=== PATIENT | male | born 1995 | race American Indian/Alaskan Native ===

== ENCOUNTER 2019-03-02 15:22 | Emergency (ER) | payer MEDICAID, OTHER ==
[2019-03-02 15:47] VITALS: BP 110/69
[2019-03-02] MEDS ORDERED: ZITHROMAX PO ONE (17:54)
[2019-03-02] MEDS ORDERED: ROCEPHIN IM ONE (17:54)
[2019-03-02] MEDS ORDERED: XYLOCAINE 1% MPF 5 mL INFILTRATI ONE (17:54)
[2019-03-02] MEDS ORDERED: ZOFRAN ODT PO ONE (17:54)
--- NOTE | 2019-03-02 17:59 | Emergency Department Report ---
ED Male HPI - General Chief complaint: Skin Rash Stated complaint: ITCHING IN GENITALS Time Seen by Provider: 03/02/19 17:41 Source: patient Mode of arrival: Ambulatory Limitations: No Limitations - History of Present Illness Initial comments: Mr. Arriaga is a 23 yo male who presents with anal itching and lesions for the past several weeks. He was exposed to chlamydia by a known sexual partner. He has had unprotected anal receptive intercourse. He denies abdominal pain. Denies genital discharge. Denies fever. MD Complaint: other (anal lesions anal itching) -: Gradual, week(s) (3) Radiation: none Severity: mild Quality: aching Consistency: constant Improves with: none Worsens with: none denies other symptoms - Related Data Previous Rx's Medication Instructions Recorded Last Taken Type Acyclovir [Zovirax Tab] 400 mg PO TID 7 Days #21 tab 03/02/19 Unknown Rx Allergies Allergy/AdvReac Type Severity Reaction Status Date / Time No Known Allergies Allergy Verified 03/02/19 15:23 ED Review of Systems ROS: Stated complaint: ITCHING IN GENITALS Other details as noted in HPI Constitutional: denies: fever, malaise Gastrointestinal: denies: abdominal pain, vomiting Genitourinary: denies: urgency, dysuria, frequency, discharge Skin: rash, lesions Neurological: denies: headache, weakness ED Past Medical Hx - Past Medical History Previous Medical History?: No - Surgical History Past Surgical History?: No - Social History Smoking Status: Current Every Day Smoker Substance Use Type: None - Medications Home Medications: Home Medications Medication Instructions Recorded Confirmed Last Taken Type Acyclovir [Zovirax Tab] 400 mg PO TID 7 Days #21 tab 03/02/19 Unknown Rx ED Physical Exam - General Limitations: No Limitations General appearance: alert, in no apparent distress - Head Head exam: Present: atraumatic, normocephalic - Eye Eye exam: Present: normal appearance - ENT ENT exam: Present: mucous membranes moist - Neck Neck exam: Present: normal inspection, full ROM - Respiratory Respiratory exam: Absent: respiratory distress - GI/Abdominal GI/Abdominal exam: Present: soft - Rectal Rectal exam: Present: other (several small flesh-colored ulcers at the rectal region with small nonthrombosed hemorrhoid) - Extremities Exam Extremities exam: Present: normal inspection - Back Exam Back exam: Present: normal inspection - Neurological Exam Neurological exam: Present: alert, oriented X3 - Psychiatric Psychiatric exam: Present: normal affect, normal mood - Skin Skin exam: Present: warm. Absent: rash ED Course Vital Signs 03/02/19 15:40 Temperature 98.1 F Pulse Rate 72 Respiratory 16 Rate Blood Pressure 110/69 O2 Sat by Pulse 98 Oximetry ED Medical Decision Making - Medical Decision Making Mr. Arriaga presents with STI exposure and proctitis. Differential diagnosis includes herpes simplex, chlamydia, gonorrhea infection. I suspect herpes proctitis due to clinical presentation. He received ceftriaxone and azithromycin to cover for both chlamydia and gonorrhea. I have provided prescription for acyclovir. Also provided written and verbal education. Strongly recommended HIV and STI outpatient testing. Critical care attestation.: If time is entered above; I have spent that time in minutes in the direct care of this critically ill patient, excluding procedure time. 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
== END 2019-03-02 18:20 | disposition home or self-care (01) ==
LOC: ED 15:22
DX: A60.1 Herpesviral infection of perianal skin and rectum (principal); Z20.2 Contact with and (suspected) exposure to infections with a predominantly sexual mode of transmission; F17.200 Nicotine dependence, unspecified, uncomplicated
CPT/HCPCS: 96372; 99282; J0696; Q0162

== ENCOUNTER 2019-07-31 03:48 | Emergency (ER) | payer SELFPAY ==
[2019-07-31 03:54] VITALS: BP 115/69
[2019-07-31] MEDS ORDERED: AMOXICILLIN 500 MG CAP PO ONE (04:50)
[2019-07-31] MEDS ORDERED: IBUPROFEN 800 MG TAB PO ONE (04:50)
--- NOTE | 2019-07-31 05:09 | Emergency Department Report ---
ED ENT HPI - General Chief complaint: Sore Throat Stated complaint: SORE THROAT Time Seen by Provider: 07/31/19 04:49 Source: patient Mode of arrival: Ambulatory Limitations: No Limitations - History of Present Illness Initial comments: pt is a 23-year-old -Citizen Of The [place] male who presents for sore throat 3 days date other family member with strep throat. Pain is rated at 4/10 exacerbated by swallowing. There is no stridor , no wheezing, no ear pain. There is no fever at this time patient is tolerated by mouth intake. MD complaint: sore throat Onset/Timin -: week(s) Severity: moderate Severity scale (0 -10): 4 Quality: burning, sharp Consistency: intermittent Improves with: none Worsens with: swallowing Associated Symptoms: pain with swallowing, sore throat - Related Data Previous Rx's Medication Instructions Recorded Last Taken Type Acyclovir [Zovirax Tab] 400 mg PO TID 7 Days #21 tab 03/02/19 Unknown Rx Amoxicillin [Trimox CAP] 500 mg PO Q8H 10 Days #30 capsule 07/31/19 Unknown Rx Benzocaine/Menthol [Cepacol Sore 1 each MM Q4H PRN #24 lozenge 07/31/19 Unknown Rx Throat Lozenge] Ibuprofen [Motrin 800 MG tab] 800 mg PO Q8HR PRN #30 tablet 07/31/19 Unknown Rx predniSONE [Deltasone] 40 mg PO QDAY 5 Days #10 tab 07/31/19 Unknown Rx Allergies Allergy/AdvReac Type Severity Reaction Status Date / Time No Known Allergies Allergy Verified 03/02/19 15:23 ED Dental HPI - General Chief complaint: Sore Throat Stated complaint: SORE THROAT Time Seen by Provider: 07/31/19 04:49 Source: patient Mode of arrival: Ambulatory Limitations: No Limitations - Related Data Previous Rx's Medication Instructions Recorded Last Taken Type Acyclovir [Zovirax Tab] 400 mg PO TID 7 Days #21 tab 03/02/19 Unknown Rx Amoxicillin [Trimox CAP] 500 mg PO Q8H 10 Days #30 capsule 07/31/19 Unknown Rx Benzocaine/Menthol [Cepacol Sore 1 each MM Q4H PRN #24 lozenge 07/31/19 Unknown Rx Throat Lozenge] Ibuprofen [Motrin 800 MG tab] 800 mg PO Q8HR PRN #30 tablet 07/31/19 Unknown Rx predniSONE [Deltasone] 40 mg PO QDAY 5 Days #10 tab 07/31/19 Unknown Rx Allergies Allergy/AdvReac Type Severity Reaction Status Date / Time No Known Allergies Allergy Verified 03/02/19 15:23 ED Review of Systems ROS: Stated complaint: SORE THROAT Other details as noted in HPI Constitutional: denies: chills, fever Eyes: denies: eye pain, eye discharge, vision change ENT: throat pain Respiratory: denies: cough, shortness of breath, wheezing Cardiovascular: denies: chest pain, palpitations Endocrine: no symptoms reported Gastrointestinal: as per HPI. denies: nausea, vomiting Genitourinary: denies: urgency, dysuria Musculoskeletal: denies: back pain, joint swelling, arthralgia Skin: denies: rash, lesions Neurological: denies: headache, weakness, paresthesias Psychiatric: denies: anxiety, depression Hematological/Lymphatic: denies: easy bleeding, easy bruising ED Past Medical Hx - Past Medical History Previous Medical History?: No - Surgical History Past Surgical History?: No - Social History Smoking Status: Current Every Day Smoker Substance Use Type: Marijuana - Medications Home Medications: Home Medications Medication Instructions Recorded Confirmed Last Taken Type Acyclovir [Zovirax Tab] 400 mg PO TID 7 Days #21 tab 03/02/19 Unknown Rx Amoxicillin [Trimox CAP] 500 mg PO Q8H 10 Days #30 capsule 07/31/19 Unknown Rx Benzocaine/Menthol [Cepacol Sore 1 each MM Q4H PRN #24 lozenge 07/31/19 Unknown Rx Throat Lozenge] Ibuprofen [Motrin 800 MG tab] 800 mg PO Q8HR PRN #30 tablet 07/31/19 Unknown Rx predniSONE [Deltasone] 40 mg PO QDAY 5 Days #10 tab 07/31/19 Unknown Rx ED Physical Exam - General Limitations: No Limitations General appearance: alert, in no apparent distress - Head Head exam: Present: atraumatic, normocephalic - Eye Eye exam: Present: normal appearance - ENT ENT exam: Present: mucous membranes moist, TM's normal bilaterally, normal external ear exam - Expanded ENT Exam Expanded Throat exam: Positive: tonsillar erythema, tonsillomegaly, tonsillar exudate, other (uvula midline mild white exudate and lesion, no stridor no wheezing ). Negative: R peritonsillar mass, L peritonsillar mass - Neck Neck exam: Present: normal inspection - Respiratory Respiratory exam: Present: normal lung sounds bilaterally. Absent: respiratory distress, wheezes, stridor, chest wall tenderness - Cardiovascular Cardiovascular Exam: Present: regular rate, normal rhythm, normal heart sounds. Absent: systolic murmur, diastolic murmur, rubs, gallop - GI/Abdominal GI/Abdominal exam: Present: soft, normal bowel sounds. Absent: distended, tenderness, bruit, hernia - Rectal Rectal exam: Present: deferred - Extremities Exam Extremities exam: Present: normal inspection - Back Exam Back exam: Present: normal inspection, full ROM. Absent: tenderness, CVA tenderness (R), CVA tenderness (L), rash noted - Neurological Exam Neurological exam: Present: alert, oriented X3 - Psychiatric Psychiatric exam: Present: normal affect, normal mood - Skin Skin exam: Present: warm, dry, intact, normal color. Absent: rash ED Course Vital Signs 07/31/19 03:53 Temperature 98.0 F Pulse Rate 74 Respiratory 18 Rate Blood Pressure 115/69 O2 Sat by Pulse 98 Oximetry ED Medical Decision Making - Medical Decision Making This is pharyngitis, plan: amoxicillin, ibuprofen, prednisone follow up with pcp in 2-3 days return to ed if symptoms worsen. pt verbalized agreement and understanding of with discharge plan. Critical care attestation.: If time is entered above; I have spent that time in minutes in the direct care of this critically ill patient, excluding procedure time. ED Disposition Clinical Impression: Pharyngitis Qualifiers: Pharyngitis/tonsillitis etiology: unspecified etiology Qualified Code(s): J02.9 - Acute pharyngitis, unspecified Disposition: DC-01 TO HOME OR SELFCARE Is pt being admited?: No Does the pt Need Aspirin: No Condition: Stable Instructions: Pharyngitis (ED) Prescriptions: Benzocaine/Menthol [Cepacol Sore Throat Lozenge] 1 each MM Q4H PRN #24 lozenge PRN Reason: throat pain predniSONE [Deltasone] 40 mg PO QDAY 5 Days #10 tab Ibuprofen [Motrin 800 MG tab] 800 mg PO Q8HR PRN #30 tablet PRN Reason: pain fever Amoxicillin [Trimox CAP] 500 mg PO Q8H 10 Days #30 capsule Referrals: [facility] [Outside] - 3-5 Days Forms: Work/School Release Form(ED) Time of Disposition: 05:14
== END 2019-07-31 05:29 | disposition home or self-care (01) ==
LOC: ED 03:48
DX: J02.9 Acute pharyngitis, unspecified (principal); F17.200 Nicotine dependence, unspecified, uncomplicated; Z79.899 Other long term (current) drug therapy
CPT/HCPCS: 99282